=== PATIENT | female | born 1980 | race Caucasian/White ===

== ENCOUNTER 2018-07-14 19:47 | Inpatient (IN) ==
[2018-07-14 21:05] LABS: Basophils # 0.1 K/mcL (0.0-0.2); Basophils % 0.6 %; Eosinophils # 0.3 K/mcL (0.0-0.6); Eosinophils % 1.8 %; Hematocrit 47.8 % (35.3-44.9); Hemoglobin 16.4 g/dL (11.5-15.4); Immature Granulocytes % 0.4 % (0-4); Lymphocytes # 2.7 K/mcL (0.6-4.6); Lymphocytes % 19.6 %; Mean Corpuscular HGB Conc 34.3 g/dL (31.6-35.5); Mean Corpuscular Volume 90.4 fL (83.0-100.0); Mean Platelet Volume 10.5 fL (9.4-12.4); Monocytes # 1.1 K/mcL (0.0-1.3); Monocytes % 7.9 %; Neutrophils # 9.8 K/mcL (1.6-8.9); Platelet Count 303 K/mcL (140-400); Red Blood Count 5.29 M/mcL (3.82-4.97); Red Cell Distribution Width 13.2 % (11.5-14.5); Segmented Neutrophils % 69.7 %
--- NOTE | 2018-07-14 21:10 | Emergency Department Note ---
Disposition Clinical Impression: Suicidal ideation Depression Qualifiers: Depression Type: major depressive disorder Major depression recurrence: recurrent Active/Remission status: currently active Major depression episode severity: severe Psychotic features: without psychotic features Qualified Code(s ): F33.2 - Major depressive disorder, recurrent severe without psychotic features Disposition: Admitted As Inpatient Condition: Good Referrals: NONE,PCP [Primary Care Provider] - Forms: ED Satisfaction Letter Time of Disposition: 00:49 Psych HPI - General Chief Complaint: ED Psychiatric Symptoms Stated Complaint: SI Time Seen by Provider: 07/14/18 20:55 Source: patient Mode of arrival: ambulatory Nursing Notes Reviewed: Yes Vital Signs Reviewed: Yes - History of Present Illness HPI Narrative: This is a 37-year-old female who reports a long history of depression, not on any current medications, who states that she feels like she cannot do anything right and is severely tempted to cut herself. Instead, she punched a wall tonight. She has pain in the right fourth metacarpal and severe bruising as a result. She states she tried to get into psychiatry was told many months before she could do so. - Related Data Allergies Allergy/AdvReac Type Severity Reaction Status Date / Time ibuprofen AdvReac Vomiting Verified 07/22/17 08:11 All systems ED: reviewed and negative except as stated. Psychiatric: Reports: depression, suicidal thoughts Past Medical History - Past Medical History Medical history: Reports: GERD, hypertension, migraine Psychiatric history: Reports: no psych history - Social History Smoking Status: Current every day smoker Smokeless Tobacco Status: No Alcohol use: Reports: none Drug use: Reports: marijuana Physical Exam - General Limitations: no limitations General appearance: alert, in no apparent distress - Head Head exam: atraumatic, normocephalic, normal inspection - Eye Eye exam: Present: normal appearance, PERRL, EOMI - Neck Neck exam: Present: normal inspection, full ROM, trachea midline - Chest Chest inspection: Present: normal inspection, symmetric chest wall rise - Respiratory Respiratory exam: Present: normal lung sounds bilaterally - Cardiovascular Cardiovascular exam: Present: regular rate, normal rhythm, normal heart sounds - Abdominal Exam Abdominal exam: Present: soft, Non-Tender. Absent: tenderness, distention, guarding, rebound, rigidity - Extremities Exam Extremities exam: Present: normal inspection, full ROM. Absent: tenderness, pedal edema - Neurological Exam Neurological exam: Present: alert, oriented X3, CN II-XII intact. Absent: motor sensory deficit - Psychiatric Psychiatric exam: Present: depressed, suicidal ideation, other (She reports no definite SI or HI, but states she wants to cut herself.) - Skin Skin exam: Present: warm, dry, normal color Course Vital Signs Temperature 97.9 F 07/14/18 19:56 Pulse Rate 106 07/14/18 19:56 Respiratory Rate 20 07/14/18 19:56 Blood Pressure 186/113 07/14/18 19:56 O2 Sat by Pulse Oximetry 98 07/14/18 19:56 Temperature 97.9 F 07/14/18 19:56 Pulse Rate 106 07/14/18 19:56 Respiratory Rate 20 07/14/18 19:56 Blood Pressure 186/113 07/14/18 19:56 O2 Sat by Pulse Oximetry 98 07/14/18 19:56 Oxygen Delivery Oxygen Delivery Room Air Psych - MDM Narrative Medical decision making narrative: This is a 37-year-old female with depression and suicidal ideations with a plan of cutting herself. She was seen by psychiatry here in the emergency department with a recommendation of admission. - Lab Data Lab results narrative: CBC shows hemoconcentration with a leukocytosis of 14, H&H is 16.4 and 47.8 BMP was unremarkable UA was unremarkable Drug screen was positive for THC Result diagrams: 07/14/18 20:47 07/14/18 20:47 Lab Results 07/14/18 07/14/18 07/14/18 Range/Units 20:45 20:45 20:47 WBC 14.0 H (4.3-11.1) K/mcL RBC 5.29 H (3.82-4.97) M/mcL Hgb 16.4 H (11.5-15.4) g/dL Hct 47.8 H (35.3-44.9) % MCV 90.4 (83.0-100.0) fL MCH 31.0 (28.0-33.3) pg MCHC 34.3 (31.6-35.5) g/dL RDW 13.2 (11.5-14.5) % Plt Count 303 (140-400) K/mcL MPV 10.5 (9.4-12.4) fL Immature Gran % 0.4 (0-4) % Seg Neutrophils % 69.7 % Lymphocytes % 19.6 % Monocytes % 7.9 % Eosinophils % 1.8 % Basophils % 0.6 % Neutrophils # 9.8 H (1.6-8.9) K/mcL Lymphocytes # 2.7 (0.6-4.6) K/mcL Monocytes # 1.1 (0.0-1.3) K/mcL Eosinophils # 0.3 (0.0-0.6) K/mcL Basophils # 0.1 (0.0-0.2) K/mcL Sodium (136-145) mEq/L Potassium (3.5-5.1) mEq/L Chloride (98-107) mEq/L Carbon Dioxide (23-29) mEq/L BUN (6-20) mg/dL Creatinine (0.60-1.20) mg/dL Est GFR ( Amer) (> 60) Est GFR (Non-Af Amer) (> 60) BUN/Creatinine Ratio (6-26) Glucose (70-105) mg/dL Calculated Osmolality (280-300) Calcium (8.6-10.3) mg/dL Urine Color Yellow (Yellow) Urine Clarity Clear (Clear) Urine pH 6.0 (5.0-8.0) pH Units Ur Specific [place] 1.015 (1.010-1.025) Urine Protein Negative (Neg-Trace) mg/dL Urine Glucose (UA) Normal (Normal) mg/dL Urine Ketones Negative (Negative) mg/dL Urine Blood Trace-lysed H (Negative) Urine Nitrite Negative (Negative) Urine Bilirubin Negative (Negative) Urine Urobilinogen Normal (Normal) mg/dL Ur Leukocyte Esterase Negative (Negative) Urine Microscopic RBC 0-3 (0-3) per hpf Urine Microscopic WBC 0-3 (0-3) per hpf Ur Squamous Epith Cells Many H (None-Few) per lpf Calcium Phosphate Cryst Present Urine Bacteria None Seen (None-Few) per hpf Salicylates (15.0-30.0) mg/dL Urine Opiates Screen Negative (Xgdhys=698) ng/mL Acetaminophen (10-20) mcg/mL Ur Barbiturates Screen Negative (Ewqeuo=773) ng/mL Ur Phencyclidine Scrn Negative (Cutoff=25) ng/mL Ur Amphetamines Screen Negative (Ckyfic=6628) ng/mL U Benzodiazepines Scrn Negative (Rdjhqh=754) ng/mL Urine Cocaine Screen Negative (Cutoff= 300) ng/mL U Marijuana (THC) Screen Positive H (Cutoff = 50) ng/mL Ur Drug Screen Interp See Below Ethyl Alcohol (Less than 10) mg/dL 07/14/18 Range/Units 20:47 WBC (4.3-11.1) K/mcL RBC (3.82-4.97) M/mcL Hgb (11.5-15.4) g/dL Hct (35.3-44.9) % MCV (83.0-100.0) fL MCH (28.0-33.3) pg MCHC (31.6-35.5) g/dL RDW (11.5-14.5) % Plt Count (140-400) K/mcL MPV (9.4-12.4) fL Immature Gran % (0-4) % Seg Neutrophils % % Lymphocytes % % Monocytes % % Eosinophils % % Basophils % % Neutrophils # (1.6-8.9) K/mcL Lymphocytes # (0.6-4.6) K/mcL Monocytes # (0.0-1.3) K/mcL Eosinophils # (0.0-0.6) K/mcL Basophils # (0.0-0.2) K/mcL Sodium 137 (136-145) mEq/L Potassium 3.7 (3.5-5.1) mEq/L Chloride 106 (98-107) mEq/L Carbon Dioxide 23 (23-29) mEq/L BUN 11 (6-20) mg/dL Creatinine 0.74 (0.60-1.20) mg/dL Est GFR ( Amer) > 60 (> 60) Est GFR (Non-Af Amer) > 60 (> 60) BUN/Creatinine Ratio 15 (6-26) Glucose 104 (70-105) mg/dL Calculated Osmolality 284 (280-300) Calcium 9.4 (8.6-10.3) mg/dL Urine Color (Yellow) Urine Clarity (Clear) Urine pH (5.0-8.0) pH Units Ur Specific [place] (1.010-1.025) Urine Protein (Neg-Trace) mg/dL Urine Glucose (UA) (Normal) mg/dL Urine Ketones (Negative) mg/dL Urine Blood (Negative) Urine Nitrite (Negative) Urine Bilirubin (Negative) Urine Urobilinogen (Normal) mg/dL Ur Leukocyte Esterase (Negative) Urine Microscopic RBC (0-3) per hpf Urine Microscopic WBC (0-3) per hpf Ur Squamous Epith Cells (None-Few) per lpf Calcium Phosphate Cryst Urine Bacteria (None-Few) per hpf Salicylates 2.6 L (15.0-30.0) mg/dL Urine Opiates Screen (Addwrp=327) ng/mL Acetaminophen < 10 L (10-20) mcg/mL Ur Barbiturates Screen (Pohgkc=591) ng/mL Ur Phencyclidine Scrn (Cutoff=25) ng/mL Ur Amphetamines Screen (Zklnhl=9025) ng/mL U Benzodiazepines Scrn (Nxsujk=211) ng/mL Urine Cocaine Screen (Cutoff= 300) ng/mL U Marijuana (THC) Screen (Cutoff = 50) ng/mL Ur Drug Screen Interp Ethyl Alcohol < 10 (Less than 10) mg/dL Psychiatric Medical Clearance - Medical Clearance Checklist Medical History: No Social History Section defined Current Vitals: Last Vital Signs Temp 97.9 F 07/14/18 19:56 Pulse 106 07/14/18 19:56 Resp 20 07/14/18 19:56 BP 186/113 07/14/18 19:56 Pulse Ox 98 07/14/18 19:56 Psychiatric Lab Panel: Drug Levels and Toxicity 07/14/18 07/14/18 20:45 20:47 Urine Opiates Screen Negative Acetaminophen < 10 L Ur Barbiturates Screen Negative Ur Phencyclidine Scrn Negative Ur Amphetamines Screen Negative U Benzodiazepines Scrn Negative Urine Cocaine Screen Negative U Marijuana (THC) Screen Positive H Ethyl Alcohol < 10 Abnormal Labs: Abnormal lab results WBC 14.0 K/mcL (4.3-11.1) H 07/14/18 20:47 RBC 5.29 M/mcL (3.82-4.97) H 07/14/18 20:47 Hgb 16.4 g/dL (11.5-15.4) H 07/14/18 20:47 Hct 47.8 % (35.3-44.9) H 07/14/18 20:47 Neutrophils # 9.8 K/mcL (1.6-8.9) H 07/14/18 20:47 Urine Blood Trace-lysed (Negative) H 08/13/18 20:45 Ur Squamous Epith Cells Many per lpf (None-Few) H 07/14/18 20:45 Salicylates 2.6 mg/dL (15.0-30.0) L 07/14/18 20:47 Acetaminophen < 10 mcg/mL (10-20) L 07/14/18 20:47 U Marijuana (THC) Screen Positive ng/mL (Cutoff = 50) H 07/14/18 20:45 Statement of Medical Clearance: I have evaluated the patient, reviewed diagnostic information, and certify that the patient's medical condition is sufficiently stable that transfer to the psychiatric unit does not pose a significant risk of deterioration.
[2018-07-14 21:11] LABS: Bilirubin,Urine Negative (Negative); Blood,Urine Trace-lysed (Negative); Clarity,Urine Clear (Clear); Color,Urine Yellow (Yellow); Glucose,Urine (UA) Normal (Normal); Ketones,Urine Negative (Negative); Leukocyte Esterase,Urine Negative (Negative); Nitrite,Urine Negative (Negative); Protein,Urine Negative (Neg-Trace); Specific Gravity,Urine 1.015 (1.010-1.025); Urobilinogen,Urine Normal (Normal)
[2018-07-14 21:20] LABS: Acetaminophen < 10 mcg/mL (10-20); BUN/Creatinine Ratio 15 (6-26); Blood Urea Nitrogen 11 mg/dL (6-20); Calcium 9.4 mg/dL (8.6-10.3); Carbon Dioxide 23 mEq/L (23-29); Chloride 106 mEq/L (98-107); Ethanol < 10 mg/dL (Less than 10); Glucose 104 mg/dL (70-105); Osmolality,Calculated 284 (280-300); Potassium 3.7 mEq/L (3.5-5.1); Salicylate 2.6 mg/dL (15.0-30.0); Sodium 137 mEq/L (136-145); eGFR For Non-African Americans > 60 (> 60)
[2018-07-14 21:21] LABS: Amphetamine Screen,Urine Negative ng/mL (Cutoff=1000); Barbiturate Screen,Urine Negative ng/mL (Cutoff=200); Benzodiazepines Screen,Urine Negative ng/mL (Cutoff=200); Cannabinoid Screen,Urine Positive ng/mL (Cutoff = 50); Cocaine Screen,Urine Negative ng/mL (Cutoff= 300); Opiate Screen,Urine Negative ng/mL (Cutoff=300); Phencyclidine Screen,Urine Negative ng/mL (Cutoff=25); RBC,Urine 0-3 per hpf (0-3); Squamous Epithelial Cell,Urine Many per lpf (None-Few)
[2018-07-14 21:22] LABS: WBC,Urine 0-3 per hpf (0-3)
[2018-07-14 21:23] LABS: Bacteria,Urine None Seen per hpf (None-Few); Calcium Phosphate Crystals,Ur Present
[2018-07-15] MEDS ORDERED: *HR* LORazepam 1 MG TABLET PO PRN (00:52)
[2018-07-15] MEDS ORDERED: MOM Conc 10 ML UD.LIQ PO PRN (00:52)
[2018-07-15] MEDS ORDERED: Mag Hydrox/Al Hydrox/Simeth 30 ML UDC PO PRN (00:52)
[2018-07-15] MEDS ORDERED: traZODone 50 MG TABLET PO PRN (00:52)
[2018-07-15] MEDS ORDERED: *HR* LORazepam 2 MG/ML VIAL IM PRN (00:52)
[2018-07-15] MEDS ORDERED: Haloperidol Lactate 5 MG/ML VIAL IM PRN (00:52)
[2018-07-15] MEDS: Acetaminophen 325 MG TABLET PO PRN (01:41)
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
[2018-07-15] MEDS: Nicotine 21 MG PATCH.TD24 TD SCH (11:24)
[2018-07-15] MEDS: Venlafaxine XR (24 HR) 75 MG CAP.ER.24H PO SCH (11:24)
[2018-07-15] MEDS: hydrOXYzine pamoate 25 MG CAPSULE PO PRN (20:12)
[2018-07-16] MEDS: Venlafaxine XR (24 HR) 75 MG CAP.ER.24H PO SCH (08:33)
[2018-07-16] MEDS: Nicotine 21 MG PATCH.TD24 TD SCH (08:33)
--- NOTE | 2018-07-16 14:06 | Psychiatry Progress Note ---
Date of Encounter: 07/16/18 Time of Encounter: 14:04 Subjective Interval history: Patient seen for follow-up. Case discussed with treatment team. Staff report patient is cooperative, medication compliant, participate in groups and activities. She is tolerating the new medication and denies any side effects. She reports mid insomnia and partial response to trazodone. She responded well to Seroquel. She is motivated to do her outpatient follow-up and counseling and to continue taking medication. She is future oriented and hopeful. Denied any hopelessness or suicidal ideation. Review of Systems Psychiatric: Reports: depression, anxiety, abnormal sleep pattern, suicidal ideation, hopelessness, irritability Results - Vital Signs Vital Signs: Temp Pulse Resp BP Pulse Ox 98.6 F 96 18 143/100 98 07/16/18 09:00 07/16/18 09:00 07/16/18 09:00 07/16/18 09:00 07/14/18 19:56 Assessment and Plan (1) Depression Current visit: Yes Status: Acute Plan: Continue hospitalization, Close observation, Suicide Precautions per unit protocol, Encourage participation in unit milieu, Group Therapy, Monitor sleep, Monitor appetite Risks, benefits, side effects, alternatives discussed w/pt: Yes Patient agreeable to treatment: Yes Qualifiers: Depression Type: major depressive disorder Major depression recurrence: recurrent Active/Remission status: currently active Major depression episode severity: severe Psychotic features: without psychotic features Qualified Code(s): F33.2 - Major depressive disorder, recurrent severe without psychotic features Consult Discharge Plan - Plan Referrals: NONE,PCP [Primary Care Provider] - Psychiatry Exam - Constitutional Vitals: Temp Pulse Resp BP Pulse Ox 98.6 F 96 18 143/100 98 07/16/18 09:00 07/16/18 09:00 07/16/18 09:00 07/16/18 09:00 07/14/18 19:56 General appearance: age & developmentally appropriate, well-groomed, well- nourished, obese - Musculoskeletal Gait: normal Station: relaxed Strength & Tone: normal for patient - Psychiatric Patient Orientation: Yes Person, Yes Time, Yes Place Level of alertness: Alert Behavior: calm, cooperative Psychomotor activity: Normal Eye Contact: Maintains Eye Contact Mood Description: Euthymic/stable, Anxious Affect description: congruent with mood, full range Speech Volume: Normal Speech pattern: normal rate, normal rhythm, normal tone, fluent, spontaneous Language & Vocabulary: consistent with education Thought Process: Linear, Goal Oriented Thought Content: No Suicidal ideation, No Homicidal ideation, No Overt delusions Perceptual Disturbances: No Auditory hallucinations, No Visual hallucinations Attention Span Ability: Capable of Focused Attention Memory Description: Grossly Intact Patient Reliability: Reliable Historian Fund of knowledge: Yes abstraction ability, Yes aware of current events Intelligence Estimate: Average Judgment: Limited Insight: Partial
[2018-07-16] MEDS: Acetaminophen 325 MG TABLET PO PRN (20:16)
[2018-07-16] MEDS: hydrOXYzine pamoate 25 MG CAPSULE PO PRN (20:18)
[2018-07-17] MEDS: Nicotine 21 MG PATCH.TD24 TD SCH (08:27)
[2018-07-17] MEDS: Venlafaxine XR (24 HR) 75 MG CAP.ER.24H PO SCH (08:27)
[2018-07-17 09:31] VITALS: BP 131/92
--- NOTE | 2018-07-17 10:47 | Discharge Summary ---
Date of Encounter: 07/17/18 Time of Encounter: 10:43 Diagnosis - Discharge Diagnosis (1) Depression Status: Acute Qualifiers: Depression Type: major depressive disorder Major depression recurrence: recurrent Active/Remission status: currently active Major depression episode severity: severe Psychotic features: without psychotic features Qualified Code(s): F33.2 - Major depressive disorder, recurrent severe without psychotic features Medications - Discharge Medications Prescriptions: Quetiapine Fumarate [Seroquel] 50 mg PO HS PRN #30 tablet PRN Reason: Insomnia Venlafaxine XR (24 HR) [Effexor XR] 75 mg PO DAILY #30 cap.er.24h Albuterol Sulfate [Ventolin Hfa] 2 puff IH Q4-6H PRN 07/15/18 [History] Quetiapine Fumarate [Seroquel] 50 mg PO HS PRN #30 tablet 07/17/18 [Rx] Venlafaxine XR (24 HR) [Effexor XR] 75 mg PO DAILY #30 cap.er.24h 07/17/18 [Rx] 3 Allergy/AdvReac Type Severity Reaction Status Date / Time ibuprofen AdvReac Vomiting Verified 07/15/18 09:32 Provider Date of admission: 07/15/18 00:50 Primary care physician: PCP NONE Discharging clinician: Tavo Frazier Psychiatry Exam - Constitutional Vitals: Temp Pulse Resp BP Pulse Ox 98.0 F 83 16 131/92 98 07/17/18 09:00 07/17/18 09:00 07/17/18 09:00 07/17/18 09:00 07/14/18 19:56 General appearance: age & developmentally appropriate, well-groomed, well- nourished, obese - Musculoskeletal Gait: normal Station: relaxed Strength & Tone: normal for patient - Psychiatric Patient Orientation: Yes Person, Yes Time, Yes Place Level of alertness: Alert Behavior: calm, cooperative Psychomotor activity: Normal Eye Contact: Maintains Eye Contact Mood Description: Euthymic/stable Affect description: congruent with mood, full range Speech Volume: Normal Speech pattern: normal rate, normal rhythm, normal tone, fluent, spontaneous Language & Vocabulary: consistent with education Thought Process: Linear, Goal Oriented Thought Content: No Suicidal ideation, No Homicidal ideation, No Overt delusions Perceptual Disturbances: No Auditory hallucinations, No Visual hallucinations Attention Span Ability: Capable of Focused Attention Memory Description: Grossly Intact Patient Reliability: Reliable Historian Fund of knowledge: Yes abstraction ability, Yes aware of current events Intelligence Estimate: Average Judgment: Limited Insight: Partial Hospital Course Hospital course: Ms. Amaya is a 37 year old female admitted for depression and suicidal ideation. For details of admission please see H&P On the units patient was started on Effexor SR and Seroquel for sleep patient tolerated medication well without any side effects, she participated in activities and groups, she was medication compliant. She reported improved sleep and appetite and energy level. She denied any suicidal ideation or self- harm or hopelessness. On discharge patient was medically stable, nonsuicidal, tolerating medication without any side effects and future oriented. Social work could not completed her discharge plans and follow-up appointments. She is discharged in stable condition - Time Spent with Patient Total time spent providing and/or coordinating discharge services: Greater than 30 minutes Assessment and Plan - Patient/Caregiver Discharge Instructions Activity: resume usual activities as tolerated Diet: regular diet - Follow up Plan Follow up with: [facility] [Outside] - 07/31/18 10:00 am (The above appointment is with Mariluz Molina, counselor at [facility]. Your first appointment will be very thorough and the total appointment time will take between two and three hours. You will be completing paperwork, meeting with a counselor and a nurse, and developing a treatment plan. You will receive follow- up appointments for on-going services , which could include community support, mental health counseling and psychiatric medication management. Please bring the following with you to your first visit to the clinic: 1) proof of income (two consecutive pay stubs, social security award letter, bank statement, statement letter from [employer], child support statement, IRS 1040 or W2 form, or a statement from the person who financially supports you stating they help provide for your basic needs), 2 ) proof of residency (drivers license, a piece of mail showing your address, a statement from person you live with verifying you live at their address), 3) your social security card, 4) photo ID, and 5) your insurance card.) Antoinette Miranda [Advanced Practice Nurse] - 08/18/18 11:00 am (The above appointment is with Antoinette Ruben, [employer], at Primary [facility] within [facility]. This appointment is to establish you with a primary care provider. Your needs for medication will be assessed and treated as indicated as well. Please arrive 15 minutes early to complete paperwork. Please bring your insurance card, photo ID and list of current medications to your first appointment. The above appointment(s) reflects first availability. You may contact the office regularly to check for cancellations that may allow you to be seen sooner.) Functional capacity at discharge: independent ambulation Overall status at discharge: Stable Disposition: Home, Self-Care Quality - Multiple Antipsychotics Patient discharged on 2 or more antipsychotic medications: No Procedures - Procedures Procedures: Medication Management, Crisis Stabilization, Supportive Therapy, Group Therapy, Psychoeducational Therapy
== END 2018-07-17 12:10 | disposition home or self-care (01) | DRG 751 ==
LOC: EMEROOARM 19:47 → 1ANU 07-15 00:50
PROVIDERS: ADMIT Psychiatry & Neurology Psychiatry; ATTEND Psychiatry & Neurology Psychiatry

== ENCOUNTER 2019-07-19 22:28 | Observation (INO) ==
[2019-07-19] MEDS ORDERED: 0.9 % Sodium Chloride 1,000 ML IVC ONE (22:41)
[2019-07-19] MEDS ORDERED: Azithromycin 250 MG TABLET PO ONE (22:54)
[2019-07-19] MEDS ORDERED: cefTRIAXone 1,000 MG in Water for inj. (sterile) 10 ML IVP ONE (22:57)
[2019-07-19] MEDS ORDERED: methylPREDNISolone 125 MG/2 ML VIAL IVP ONE (22:58)
[2019-07-19 23:09] LABS: Basophils # 0.1 K/mcL (0.0-0.2); Basophils % 0.8 %; Eosinophils # 0.1 K/mcL (0.0-0.6); Eosinophils % 1.1 %; Hematocrit 41.2 % (35.3-44.9); Hemoglobin 13.8 g/dL (11.5-15.4); Immature Granulocytes % 0.5 % (0-4); Lymphocytes # 3.9 K/mcL (0.6-4.6); Lymphocytes % 34.7 %; Mean Corpuscular HGB Conc 33.5 g/dL (31.6-35.5); Mean Corpuscular Hemoglobin 29.9 pg (28.0-33.3); Mean Corpuscular Volume 89.2 fL (83.0-100.0); Mean Platelet Volume 9.3 fL (9.4-12.4); Monocytes # 0.9 K/mcL (0.0-1.3); Monocytes % 7.9 %; Neutrophils # 6.3 K/mcL (1.6-8.9); Platelet Count 318 K/mcL (140-400); Red Blood Count 4.62 M/mcL (3.82-4.97); Red Cell Distribution Width 13.2 % (11.5-14.5); White Blood Count 11.4 K/mcL (4.3-11.1)
[2019-07-19 23:16] LABS: Prothrombin Time 10.8 Seconds (9.4-12.1)
[2019-07-19 23:19] LABS: Activated Partial Thrombo Time 34.7 Seconds (26.0-36.0)
--- NOTE | 2019-07-19 23:20 | Emergency Department Note ---
Disposition Clinical Impression: Pneumonia, Community acquired pneumonia Disposition: Admitted As Inpatient Condition: Good Referrals: NONE,PCP [Primary Care Provider] - Forms: ED Satisfaction Letter Time of Disposition: 00:25 SOB HPI - General Chief Complaint: ED Shortness of Breath/Dyspnea Stated Complaint: cough, congestion Time Seen by Provider: 07/19/19 22:37 Source: patient Limitations: no limitations Nursing Notes Reviewed: Yes Vital Signs Reviewed: Yes - History of Present Illness 38-year-old female presents today with 2 weeks of worsening dyspnea. She went t o the urgent care 2 weeks ago and was treated with Levaquin. She was advised to obtain a chest x-ray but she did not complete this. She completed antibiotics but shortness of breath has worsened. She admits to accompanied worsening cough with yellow sputum and blood streaking. Reports subjective fevers, chills, nausea without vomiting. She is an active smoker and live a sedentary lifestyle. No history of recent travel or cancer history. Denies any CP, diaphoresis, abdominal pain, worsening swelling, hemoptysis, weight loss. Pt Subjective Complaint: shortness of breath Onset (ago): week(s) (2) Context: recent illness - Related Data Home Medications Medication Instructions Recorded Confirmed Albuterol Sulfate [Ventolin Hfa] 2 puff IH Q4-6H PRN 07/15/18 02/27/19 Buspirone HCl [Buspar] 10 mg PO DAILY 02/27/19 02/27/19 Cetirizine HCl [Zyrtec] 10 mg PO DAILY 02/27/19 02/27/19 Cholecalciferol (Vitamin D3) 1,000 unit PO DAILY 02/27/19 02/27/19 [Vitamin D] Fluticasone Propionate Nasal 50 mcg NS DAILY 02/27/19 02/27/19 [Flonase] Fluticasone/Vilanterol [Breo 1 each IH DAILY 02/27/19 02/27/19 Ellipta 100-25 Mcg INH] Gabapentin [Neurontin] 600 mg PO DAILY 02/27/19 02/27/19 Ipratropium/Albuterol Sulfate 3 ml IH Q4H PRN 02/27/19 02/27/19 [Iprat-Albut 0.5-3(2.5) mg/3 ml] Loratadine [Claritin] 10 mg PO DAILY 02/27/19 02/27/19 Montelukast [Singulair] 10 mg PO DAILY 02/27/19 02/27/19 Nicotine Patch [Nicoderm] 7 mg TD DAILY 02/27/19 02/27/19 Omeprazole [PriLOSEC] 40 mg PO DAILY 02/27/19 02/27/19 Polyethylene Glycol 3350 [MiraLAX] 17 gm PO DAILY PRN 02/27/19 02/27/19 SUMAtriptan succinate [Imitrex] 50 mg PO Q2H 02/27/19 02/27/19 Topiramate [Topamax] 50 mg PO DAILY 02/27/19 02/27/19 Tramadol HCl [Ultram] 50 mg PO TID PRN 02/27/19 02/27/19 Trazodone HCl 50 mg PO HS PRN 02/27/19 02/27/19 Venlafaxine XR (24 HR) [Effexor XR] 150 mg PO DAILY 02/27/19 02/27/19 hydrOXYzine HCl [Hydroxyzine HCl] 25 mg PO Q8H 02/27/19 02/27/19 lamoTRIgine [Lamictal] 200 mg PO HS 02/27/19 02/27/19 raNITIdine HCl [Zantac] 150 mg PO DAILY 02/27/19 02/27/19 Previous Rx's Medication Instructions Recorded Quetiapine Fumarate [Seroquel] 50 mg PO HS PRN #30 tablet 07/17/18 Allergies Allergy/AdvReac Type Severity Reaction Status Date / Time acetaminophen AdvReac CONTRAINDICATED: Verified 07/19/19 22:35 HEP C ibuprofen AdvReac Vomiting Verified 07/19/19 22:35 Constitutional: Reports: fever, chills, weakness Eyes: Denies: eye pain Cardiovascular: Denies: chest pain, palpitations Respiratory: Reports: cough, dyspnea, wheezes, sputum production. Denies: hemop tysis, stridor Gastrointestinal: Reports: nausea. Denies: abdominal pain, vomiting, diarrhea Genitourinary: Denies: urgency, dysuria Past Medical History - Past Medical History Medical history: Reports: arthritis, asthma, cancer, GERD, glaucoma, hypertension, migraine, osteoporosis, other Surgical history: Reports: other Psychiatric history: Reports: anxiety, depression - Social History Smoking Status: Current every day smoker Smokeless Tobacco Status: No Alcohol use: Reports: none Drug use: Reports: marijuana Physical Exam - General Limitations: no limitations General appearance: alert, in no apparent distress - Head Head exam: atraumatic - Eye Eye exam: Present: normal appearance - ENT ENT exam: normal exam - Chest Chest inspection: Present: normal inspection, symmetric chest wall rise - Respiratory Respiratory exam: Present: respiratory distress, wheezes, other (BL diffuse wheezing and crackles.) - Cardiovascular Cardiovascular exam: Present: regular rate, normal rhythm, +S1, +S2 - Abdominal Exam Abdominal exam: Present: soft, Non-Tender, tenderness Course Course Narrative: 38F presents with 2 weeks history of worsening SOB with yellow sputum, previously failed Levaquin therapy. CXR with left basilar airspace disease, likely pneumonia vs COPD exacerbation. Patient received dose of Rocephin, Azithromycin, steroid, breathing therapy in the ED, but continues to be symptomatic. Patient has been tachycardic (117) since admission. RR 20. SPO2 94. Blood work significant for mild leukocytosis. D-Dimer is WNL. Patient to be admitted for left basilar pneumonia and COPD exacerbation. Admitting hospitalist has accepted. - Consultations Consultation #1: Admitting hospitalist Time: 00:23 Vital Signs Temperature 98.4 F 07/19/19 22:31 Pulse Rate 117 07/19/19 22:31 Respiratory Rate 20 07/19/19 22:31 Blood Pressure 125/89 07/19/19 22:31 O2 Sat by Pulse Oximetry 94 07/19/19 22:31 Temperature 98.4 F 07/19/19 22:31 Pulse Rate 100 07/19/19 23:28 Respiratory Rate 18 07/19/19 23:41 Blood Pressure 119/88 07/19/19 23:28 O2 Sat by Pulse Oximetry 93 07/19/19 23:41 Oxygen Delivery Oxygen Delivery Room Air Shortness of Breath/Dyspnea - Medical Records Medical records reviewed: Yes I reviewed the patient's medical records. - Lab Data Lab results reviewed: Yes I reviewed the patient's lab results. Result diagrams: 07/19/19 22:56 07/19/19 22:56 Lab Results 07/19/19 07/19/19 07/19/19 Range/Units 22:56 22:56 22:56 WBC 11.4 H (4.3-11.1) K/mcL RBC 4.62 (3.82-4.97) M/mcL Hgb 13.8 (11.5-15.4) g/dL Hct 41.2 (35.3-44.9) % MCV 89.2 (83.0-100.0) fL MCH 29.9 (28.0-33.3) pg MCHC 33.5 (31.6-35.5) g/dL RDW 13.2 (11.5-14.5) % Plt Count 318 (140-400) K/mcL MPV 9.3 L (9.4-12.4) fL Immature Gran % 0.5 (0-4) % Seg Neutrophils % 55.0 % Lymphocytes % 34.7 % Monocytes % 7.9 % Eosinophils % 1.1 % Basophils % 0.8 % Neutrophils # 6.3 (1.6-8.9) K/mcL Lymphocytes # 3.9 (0.6-4.6) K/mcL Monocytes # 0.9 (0.0-1.3) K/mcL Eosinophils # 0.1 (0.0-0.6) K/mcL Basophils # 0.1 (0.0-0.2) K/mcL PT 10.8 (9.4-12.1) Seconds INR 1.0 APTT 34.7 (26.0-36.0) Seconds D-Dimer 310 (0-500) ng/mLFEU Sodium 138 (136-145) mEq/L Potassium 3.5 (3.5-5.1) mEq/L Chloride 106 (98-107) mEq/L Carbon Dioxide 24 (23-29) mEq/L BUN 10 (6-20) mg/dL Creatinine 0.71 (0.60-1.20) mg/dL Est GFR ( Amer) > 60 (> 60) Est GFR (Non-Af Amer) > 60 (> 60) BUN/Creatinine Ratio 14 (6-26) Glucose 81 (70-105) mg/dL Calculated Osmolality 284 (280-300) Lactic Acid (0.5-2.2) mmol/L Calcium 8.9 (8.6-10.3) mg/dL Phosphorus 3.2 (2.7-4.5) mg/dL Magnesium 1.9 (1.6-2.6) mg/dL Total Bilirubin 0.3 (0.3-1.0) mg/dL Direct Bilirubin 0.1 (0.0-0.2) mg/dL Indirect Bilirubin 0.2 (0.0-1.2) mg/dL AST 16 (13-39) Units/L ALT 15 (7-52) Units/L Alkaline Phosphatase 93 (34-104) Units/L Troponin I < 0.03 (< 0.04) ng/mL Serum Total Protein 6.3 L (6.4-8.9) g/dL Albumin 3.6 (3.5-5.7) g/dL Globulin 2.7 (2.4-3.5) g/dL Albumin/Globulin Ratio 1.3 (1.1-2.2) Urine Color (Yellow) Urine Clarity (Clear) Urine pH (5.0-8.0) pH Units Ur Specific Fenton (1.010-1.025) Urine Protein (Neg-Trace) mg/dL Urine Glucose (UA) (Normal) mg/dL Urine Ketones (Negative) mg/dL Urine Blood (Negative) Urine Nitrite (Negative) Urine Bilirubin (Negative) Urine Urobilinogen (Normal) mg/dL Ur Leukocyte Esterase (Negative) Urine Microscopic RBC (0-3) per hpf Urine Microscopic WBC (0-3) per hpf Ur Squamous Epith Cells (None-Few) per lpf Calcium Oxalate Crystal Urine Bacteria (None-Few) per hpf Hyaline Casts (None-Few) per lpf Ur Culture Indicated? (NO) 07/19/19 07/19/19 Range/Units 22:56 23:28 WBC (4.3-11.1) K/mcL RBC (3.82-4.97) M/mcL Hgb (11.5-15.4) g/dL Hct (35.3-44.9) % MCV (83.0-100.0) fL MCH (28.0-33.3) pg MCHC (31.6-35.5) g/dL RDW (11.5-14.5) % Plt Count (140-400) K/mcL MPV (9.4-12.4) fL Immature Gran % (0-4) % Seg Neutrophils % % Lymphocytes % % Monocytes % % Eosinophils % % Basophils % % Neutrophils # (1.6-8.9) K/mcL Lymphocytes # (0.6-4.6) K/mcL Monocytes # (0.0-1.3) K/mcL Eosinophils # (0.0-0.6) K/mcL Basophils # (0.0-0.2) K/mcL PT (9.4-12.1) Seconds INR APTT (26.0-36.0) Seconds D-Dimer (0-500) ng/mLFEU Sodium (136-145) mEq/L Potassium (3.5-5.1) mEq/L Chloride (98-107) mEq/L Carbon Dioxide (23-29) mEq/L BUN (6-20) mg/dL Creatinine (0.60-1.20) mg/dL Est GFR ( Amer) (> 60) Est GFR (Non-Af Amer) (> 60) BUN/Creatinine Ratio (6-26) Glucose (70-105) mg/dL Calculated Osmolality (280-300) Lactic Acid 1.0 (0.5-2.2) mmol/L Calcium (8.6-10.3) mg/dL Phosphorus (2.7-4.5) mg/dL Magnesium (1.6-2.6) mg/dL Total Bilirubin (0.3-1.0) mg/dL Direct Bilirubin (0.0-0.2) mg/dL Indirect Bilirubin (0.0-1.2) mg/dL AST (13-39) Units/L ALT (7-52) Units/L Alkaline Phosphatase (34-104) Units/L Troponin I (< 0.04) ng/mL Serum Total Protein (6.4-8.9) g/dL Albumin (3.5-5.7) g/dL Globulin (2.4-3.5) g/dL Albumin/Globulin Ratio (1.1-2.2) Urine Color Yellow (Yellow) Urine Clarity Cloudy A (Clear) Urine pH 6.0 (5.0-8.0) pH Units Ur Specific Fenton 1.027 H (1.010-1.025) Urine Protein Negative (Neg-Trace) mg/dL Urine Glucose (UA) Normal (Normal) mg/dL Urine Ketones Negative (Negative) mg/dL Urine Blood Negative (Negative) Urine Nitrite Negative (Negative) Urine Bilirubin Negative (Negative) Urine Urobilinogen Normal (Normal) mg/dL Ur Leukocyte Esterase Negative (Negative) Urine Microscopic RBC 0-3 (0-3) per hpf Urine Microscopic WBC 0-3 (0-3) per hpf Ur Squamous Epith Cells Many H (None-Few) per lpf Calcium Oxalate Crystal Present Urine Bacteria None Seen (None-Few) per hpf Hyaline Casts None Seen (None-Few) per lpf Ur Culture Indicated? NO (NO) - Radiology Data Radiology results reviewed: Yes I reviewed the patient's radiology results. - EKG Data EKG attestation: Yes I reviewed and interpreted this EKG. EKG results narrative: Sinus tachycardia with heart rate 100, WA 170, QTC 356. No ST segment changes Rate: Reports: tachycardia When compared to previous EKG there are: no significant changes Interpretation: Reports: no acute changes
[2019-07-19 23:31] LABS: BUN/Creatinine Ratio 14 (6-26); Blood Urea Nitrogen 10 mg/dL (6-20); Carbon Dioxide 24 mEq/L (23-29); Chloride 106 mEq/L (98-107); Glucose 81 mg/dL (70-105); Potassium 3.5 mEq/L (3.5-5.1); Sodium 138 mEq/L (136-145); eGFR For African Americans > 60 (> 60); eGFR For Non-African Americans > 60 (> 60)
[2019-07-19 23:32] LABS: Alanine Aminotransferase 15 Units/L (7-52); Albumin 3.6 g/dL (3.5-5.7); Albumin/Globulin Ratio 1.3 (1.1-2.2); Alkaline Phosphatase 93 Units/L (34-104); Aspartate Amino Transferase 16 Units/L (13-39); Bilirubin,Direct 0.1 mg/dL (0.0-0.2); Bilirubin,Indirect 0.2 mg/dL (0.0-1.2); Bilirubin,Total 0.3 mg/dL (0.3-1.0); Calcium 8.9 mg/dL (8.6-10.3); Globulin 2.7 g/dL (2.4-3.5); Magnesium 1.9 mg/dL (1.6-2.6); Osmolality,Calculated 284 (280-300); Phosphorous 3.2 mg/dL (2.7-4.5); Total Protein 6.3 g/dL (6.4-8.9); Troponin I < 0.03 ng/mL (< 0.04)
[2019-07-19] MEDS ORDERED: Ipratropium/Albuterol Neb 3 ML ONE (23:39)
[2019-07-19] MEDS: Ipratropium/Albuterol Neb 3 ML IH ONE (23:40)
[2019-07-19 23:57] LABS: Bilirubin,Urine Negative (Negative); Blood,Urine Negative (Negative); Clarity,Urine Cloudy (Clear); Color,Urine Yellow (Yellow); Glucose,Urine (UA) Normal (Normal); Ketones,Urine Negative (Negative); Leukocyte Esterase,Urine Negative (Negative); Nitrite,Urine Negative (Negative); Protein,Urine Negative (Neg-Trace); Specific Gravity,Urine 1.027 (1.010-1.025); Urobilinogen,Urine Normal (Normal)
[2019-07-19 23:59] LABS: Bacteria,Urine None Seen per hpf (None-Few); Hyaline Casts,Urine None Seen per lpf (None-Few); RBC,Urine 0-3 per hpf (0-3); Squamous Epithelial Cell,Urine Many per lpf (None-Few); WBC,Urine 0-3 per hpf (0-3)
[2019-07-20 00:12] LABS: Calcium Oxalate Crystals,Urine Present
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
--- NOTE | 2019-07-20 00:50 | Emergency Department Note ---
Disposition Clinical Impression: Pneumonia Qualifiers: Pneumonia type: due to unspecified organism Laterality: unspecified laterality Lung location: unspecified part of lung Qualified Code(s): J18.9 - Pneumonia, unspecified organism Community acquired pneumonia Qualifiers: Laterality: unspecified laterality Qualified Code(s): J18.9 - Pneumonia, unspecified organism Disposition: Admitted As Inpatient Condition: Good Time of Disposition: 00:50 General Adult HPI - General Chief complaint: ED Shortness of Breath/Dyspnea Stated complaint: cough, congestion Time Seen by Provider: 07/19/19 22:37 Source: patient Limitations: no limitations - History of Present Illness Pain Scale: 8 - Related Data Home Medications Medication Instructions Recorded Confirmed Albuterol Sulfate [Ventolin Hfa] 2 puff IH Q4-6H PRN 07/15/18 02/27/19 Buspirone HCl [Buspar] 10 mg PO DAILY 02/27/19 02/27/19 Cetirizine HCl [Zyrtec] 10 mg PO DAILY 02/27/19 02/27/19 Cholecalciferol (Vitamin D3) 1,000 unit PO DAILY 02/27/19 02/27/19 [Vitamin D] Fluticasone Propionate Nasal 50 mcg NS DAILY 02/27/19 02/27/19 [Flonase] Fluticasone/Vilanterol [Breo 1 each IH DAILY 02/27/19 02/27/19 Ellipta 100-25 Mcg INH] Gabapentin [Neurontin] 600 mg PO DAILY 02/27/19 02/27/19 Ipratropium/Albuterol Sulfate 3 ml IH Q4H PRN 02/27/19 02/27/19 [Iprat-Albut 0.5-3(2.5) mg/3 ml] Loratadine [Claritin] 10 mg PO DAILY 02/27/19 02/27/19 Montelukast [Singulair] 10 mg PO DAILY 02/27/19 02/27/19 Nicotine Patch [Nicoderm] 7 mg TD DAILY 02/27/19 02/27/19 Omeprazole [PriLOSEC] 40 mg PO DAILY 02/27/19 02/27/19 Polyethylene Glycol 3350 [MiraLAX] 17 gm PO DAILY PRN 02/27/19 02/27/19 SUMAtriptan succinate [Imitrex] 50 mg PO Q2H 02/27/19 02/27/19 Topiramate [Topamax] 50 mg PO DAILY 02/27/19 02/27/19 Tramadol HCl [Ultram] 50 mg PO TID PRN 02/27/19 02/27/19 Trazodone HCl 50 mg PO HS PRN 02/27/19 02/27/19 Venlafaxine XR (24 HR) [Effexor XR] 150 mg PO DAILY 02/27/19 02/27/19 hydrOXYzine HCl [Hydroxyzine HCl] 25 mg PO Q8H 02/27/19 02/27/19 lamoTRIgine [Lamictal] 200 mg PO HS 02/27/19 02/27/19 raNITIdine HCl [Zantac] 150 mg PO DAILY 02/27/19 02/27/19 Previous Rx's Medication Instructions Recorded Quetiapine Fumarate [Seroquel] 50 mg PO HS PRN #30 tablet 07/17/18 Allergies Allergy/AdvReac Type Severity Reaction Status Date / Time acetaminophen AdvReac CONTRAINDICATED: Verified 07/19/19 22:35 HEP C ibuprofen AdvReac Vomiting Verified 07/19/19 22:35 Constitutional: Reports: fever, chills, weakness Eyes: Denies: eye pain Cardiovascular: Denies: chest pain, palpitations Respiratory: Reports: cough, dyspnea, wheezes, sputum production. Denies: hemoptysis, stridor Gastrointestinal: Reports: nausea. Denies: abdominal pain, vomiting, diarrhea Genitourinary: Denies: urgency, dysuria Past Medical History - Past Medical History Medical history: Reports: arthritis, asthma, cancer, GERD, glaucoma, hypertension, migraine, osteoporosis, other Surgical history: Reports: other Psychiatric history: Reports: anxiety, depression - Social History Smoking Status: Current every day smoker Smokeless Tobacco Status: No Alcohol use: Reports: none Drug use: Reports: marijuana Physical Exam - General Limitations: no limitations General appearance: alert, in no apparent distress Course Vital Signs Temperature 98.4 F 07/19/19 22:31 Pulse Rate 117 07/19/19 22:31 Respiratory Rate 20 07/19/19 22:31 Blood Pressure 125/89 07/19/19 22:31 O2 Sat by Pulse Oximetry 94 07/19/19 22:31 Temperature 98.4 F 07/19/19 22:31 Pulse Rate 100 07/19/19 23:28 Respiratory Rate 18 07/19/19 23:41 Blood Pressure 119/88 07/19/19 23:28 O2 Sat by Pulse Oximetry 93 07/19/19 23:41 Oxygen Delivery Oxygen Delivery Room Air Medical Decision Making - Lab Data Result diagrams: 07/19/19 22:56 07/19/19 22:56 Lab Results 07/19/19 07/19/19 07/19/19 Range/Units 22:56 22:56 22:56 WBC 11.4 H (4.3-11.1) K/mcL RBC 4.62 (3.82-4.97) M/mcL Hgb 13.8 (11.5-15.4) g/dL Hct 41.2 (35.3-44.9) % MCV 89.2 (83.0-100.0) fL MCH 29.9 (28.0-33.3) pg MCHC 33.5 (31.6-35.5) g/dL RDW 13.2 (11.5-14.5) % Plt Count 318 (140-400) K/mcL MPV 9.3 L (9.4-12.4) fL Immature Gran % 0.5 (0-4) % Seg Neutrophils % 55.0 % Lymphocytes % 34.7 % Monocytes % 7.9 % Eosinophils % 1.1 % Basophils % 0.8 % Neutrophils # 6.3 (1.6-8.9) K/mcL Lymphocytes # 3.9 (0.6-4.6) K/mcL Monocytes # 0.9 (0.0-1.3) K/mcL Eosinophils # 0.1 (0.0-0.6) K/mcL Basophils # 0.1 (0.0-0.2) K/mcL PT 10.8 (9.4-12.1) Seconds INR 1.0 APTT 34.7 (26.0-36.0) Seconds D-Dimer 310 (0-500) ng/mLFEU Sodium 138 (136-145) mEq/L Potassium 3.5 (3.5-5.1) mEq/L Chloride 106 (98-107) mEq/L Carbon Dioxide 24 (23-29) mEq/L BUN 10 (6-20) mg/dL Creatinine 0.71 (0.60-1.20) mg/dL Est GFR ( Amer) > 60 (> 60) Est GFR (Non-Af Amer) > 60 (> 60) BUN/Creatinine Ratio 14 (6-26) Glucose 81 (70-105) mg/dL Calculated Osmolality 284 (280-300) Lactic Acid (0.5-2.2) mmol/L Calcium 8.9 (8.6-10.3) mg/dL Phosphorus 3.2 (2.7-4.5) mg/dL Magnesium 1.9 (1.6-2.6) mg/dL Total Bilirubin 0.3 (0.3-1.0) mg/dL Direct Bilirubin 0.1 (0.0-0.2) mg/dL Indirect Bilirubin 0.2 (0.0-1.2) mg/dL AST 16 (13-39) Units/L ALT 15 (7-52) Units/L Alkaline Phosphatase 93 (34-104) Units/L Troponin I < 0.03 (< 0.04) ng/mL Serum Total Protein 6.3 L (6.4-8.9) g/dL Albumin 3.6 (3.5-5.7) g/dL Globulin 2.7 (2.4-3.5) g/dL Albumin/Globulin Ratio 1.3 (1.1-2.2) Urine Color (Yellow) Urine Clarity (Clear) Urine pH (5.0-8.0) pH Units Ur Specific [place] (1.010-1.025) Urine Protein (Neg-Trace) mg/dL Urine Glucose (UA) (Normal) mg/dL Urine Ketones (Negative) mg/dL Urine Blood (Negative) Urine Nitrite (Negative) Urine Bilirubin (Negative) Urine Urobilinogen (Normal) mg/dL Ur Leukocyte Esterase (Negative) Urine Microscopic RBC (0-3) per hpf Urine Microscopic WBC (0-3) per hpf Ur Squamous Epith Cells (None-Few) per lpf Calcium Oxalate Crystal Urine Bacteria (None-Few) per hpf Hyaline Casts (None-Few) per lpf Ur Culture Indicated? (NO) 07/19/19 07/19/19 Range/Units 22:56 23:28 WBC (4.3-11.1) K/mcL RBC (3.82-4.97) M/mcL Hgb (11.5-15.4) g/dL Hct (35.3-44.9) % MCV (83.0-100.0) fL MCH (28.0-33.3) pg MCHC (31.6-35.5) g/dL RDW (11.5-14.5) % Plt Count (140-400) K/mcL MPV (9.4-12.4) fL Immature Gran % (0-4) % Seg Neutrophils % % Lymphocytes % % Monocytes % % Eosinophils % % Basophils % % Neutrophils # (1.6-8.9) K/mcL Lymphocytes # (0.6-4.6) K/mcL Monocytes # (0.0-1.3) K/mcL Eosinophils # (0.0-0.6) K/mcL Basophils # (0.0-0.2) K/mcL PT (9.4-12.1) Seconds INR APTT (26.0-36.0) Seconds D-Dimer (0-500) ng/mLFEU Sodium (136-145) mEq/L Potassium (3.5-5.1) mEq/L Chloride (98-107) mEq/L Carbon Dioxide (23-29) mEq/L BUN (6-20) mg/dL Creatinine (0.60-1.20) mg/dL Est GFR ( Amer) (> 60) Est GFR (Non-Af Amer) (> 60) BUN/Creatinine Ratio (6-26) Glucose (70-105) mg/dL Calculated Osmolality (280-300) Lactic Acid 1.0 (0.5-2.2) mmol/L Calcium (8.6-10.3) mg/dL Phosphorus (2.7-4.5) mg/dL Magnesium (1.6-2.6) mg/dL Total Bilirubin (0.3-1.0) mg/dL Direct Bilirubin (0.0-0.2) mg/dL Indirect Bilirubin (0.0-1.2) mg/dL AST (13-39) Units/L ALT (7-52) Units/L Alkaline Phosphatase (34-104) Units/L Troponin I (< 0.04) ng/mL Serum Total Protein (6.4-8.9) g/dL Albumin (3.5-5.7) g/dL Globulin (2.4-3.5) g/dL Albumin/Globulin Ratio (1.1-2.2) Urine Color Yellow (Yellow) Urine Clarity Cloudy A (Clear) Urine pH 6.0 (5.0-8.0) pH Units Ur Specific [place] 1.027 H (1.010-1.025) Urine Protein Negative (Neg-Trace) mg/dL Urine Glucose (UA) Normal (Normal) mg/dL Urine Ketones Negative (Negative) mg/dL Urine Blood Negative (Negative) Urine Nitrite Negative (Negative) Urine Bilirubin Negative (Negative) Urine Urobilinogen Normal (Normal) mg/dL Ur Leukocyte Esterase Negative (Negative) Urine Microscopic RBC 0-3 (0-3) per hpf Urine Microscopic WBC 0-3 (0-3) per hpf Ur Squamous Epith Cells Many H (None-Few) per lpf Calcium Oxalate Crystal Present Urine Bacteria None Seen (None-Few) per hpf Hyaline Casts None Seen (None-Few) per lpf Ur Culture Indicated? NO (NO) Attestation Statement - Attestation Attestation: I reviewed the residents documentation and agree with the residents assessment and plan of care. I have personally had face to face time with the patient. (Brief History, Brief Exam, and MDM) I personally supervised and was present for the bautista/critical portions of the following procedures completed by the resident: (add procedures performed here). 38 year old female presents to the eD with complaints of shortness of breath and undiagnosed COPD and she initially she tried outpatinet therapy for pnuemoina wiht levaquin and has failed. We will admit to medicine for outpatinet failure of pnuemonia and ACOPDE.
[2019-07-20] MEDS: Ipratropium/Albuterol Neb 3 ML IH ONE (00:56)
[2019-07-20] MEDS ORDERED: Acetaminophen 325 MG TABLET PO PRN (02:20)
[2019-07-20] MEDS ORDERED: Naloxone 0.4 MG/ML INJ IVP PRN (02:20)
[2019-07-20] MEDS ORDERED: Ondansetron 4 MG/2 ML VIAL IVP PRN (02:20)
[2019-07-20] MEDS: Azithromycin 500 MG in 0.9 % Sodium Chloride 250 ML IVPB SCH (03:05)
[2019-07-20] MEDS: *HR* HYDROcodone/Acet 5/325 mg TABLET PO PRN ×2 (03:05→09:32)
[2019-07-20] MEDS ORDERED: *HR* Promethazine 25 MG/ML VIAL IVP ONE (04:37)
[2019-07-20] MEDS: MethylPREDNISolone 40 MG/ML VIAL IVP SCH ×4 (04:49→23:33)
[2019-07-20] MEDS: Ipratropium/Albuterol Neb 3 ML IH SCH ×4 (04:50→22:38)
[2019-07-20 05:35] LABS: Basophils % 0.3 %; Hematocrit 41.9 % (35.3-44.9); Hemoglobin 13.7 g/dL (11.5-15.4); Immature Granulocytes % 0.7 % (0-4); Lymphocytes # 1.4 K/mcL (0.6-4.6); Lymphocytes % 14.5 %; Mean Corpuscular HGB Conc 32.7 g/dL (31.6-35.5); Mean Corpuscular Hemoglobin 30.2 pg (28.0-33.3); Mean Corpuscular Volume 92.3 fL (83.0-100.0); Mean Platelet Volume 9.6 fL (9.4-12.4); Monocytes # 0.1 K/mcL (0.0-1.3); Monocytes % 1.4 %; Neutrophils # 7.9 K/mcL (1.6-8.9); Platelet Count 333 K/mcL (140-400); Red Blood Count 4.54 M/mcL (3.82-4.97); Red Cell Distribution Width 13.3 % (11.5-14.5); Segmented Neutrophils % 83.1 %; White Blood Count 9.6 K/mcL (4.3-11.1)
[2019-07-20 05:48] LABS: INR 0.9
[2019-07-20 05:51] LABS: Activated Partial Thrombo Time 34.5 Seconds (26.0-36.0)
[2019-07-20 05:55] LABS: Alanine Aminotransferase 14 Units/L (7-52); Albumin 3.6 g/dL (3.5-5.7); Albumin/Globulin Ratio 1.4 (1.1-2.2); Alkaline Phosphatase 97 Units/L (34-104); Aspartate Amino Transferase 16 Units/L (13-39); BUN/Creatinine Ratio 12 (6-26); Bilirubin,Total 0.2 mg/dL (0.3-1.0); Blood Urea Nitrogen 9 mg/dL (6-20); Calcium 8.7 mg/dL (8.6-10.3); Carbon Dioxide 23 mEq/L (23-29); Chloride 109 mEq/L (98-107); Chol/HDL Ratio 4.8 (0-4.9); Cholesterol 177 mg/dL (< 200); Globulin 2.6 g/dL (2.4-3.5); Glucose 129 mg/dL (70-105); HDL Cholesterol 37 mg/dL (40-59); LDL Cholesterol,Calculated 118 mg/dL (0-99); Magnesium 1.9 mg/dL (1.6-2.6); Osmolality,Calculated 292 (280-300); Phosphorous 1.8 mg/dL (2.7-4.5); Sodium 141 mEq/L (136-145); Total Protein 6.2 g/dL (6.4-8.9); Triglycerides 108 mg/dL (< 150); eGFR For African Americans > 60 (> 60); eGFR For Non-African Americans > 60 (> 60)
[2019-07-20] MEDS: cefTRIAXone 1,000 MG in Water for inj. (sterile) 10 ML IVP SCH (09:25)
[2019-07-20] MEDS ORDERED: SUMAtriptan succinate 50 MG TABLET PO PRN (13:27)
[2019-07-20] MEDS ORDERED: Fluticasone Propionate Nasal 50 MCG/SPRAY BOTTLE NS PRN (13:27)
[2019-07-20] MEDS ORDERED: traZODone 50 MG TABLET PO PRN (13:27)
--- NOTE | 2019-07-20 13:33 | Internal Med Progress Note ---
Hospitalist Progress Note - Encounter Date of Encounter: 07/20/19 Time of Encounter: 12:00 - Subjective Interval History: Ms. Amaya is a 38 year old female with known PMH of chronic tobacco dependence, COPD, HTN, GERD and Bipolar who presented to ER with 2 weeks history of progressive worsening of shortness of breath that did not respond to outpatient oral antibiotics. She did complaining of productive cough of yellowish sputum as well as nausea with no vomiting. She was admitted in the hospital, started her on empirical IV antibiotic and IV steroids. Today patient stated she is feeling little better however still having moderate shortness of breath and dyspnea on exertion. She denied any chest pain. She still have cough with yellowish expectoration - Exam Vitals: Temp Pulse Resp BP Pulse Ox 97.6 F 84 18 119/84 94 07/20/19 10:55 07/20/19 10:55 07/20/19 11:18 07/20/19 10:55 07/20/19 12:47 Exam: Gen: Alert, awake, Oriented to time,place and person Chest: Diminished breath sounds B/L, Moderate to severe wheezing, No crackles, No rales Heart: S1S2+, tachycardia, No murmurs Abd: Soft, NT, BS +, No organomegaly Ext: No edema, pulses are palpable, No calf tenderness Neuro : No acute focal neuro deficits noticed Skin: No rash. - Assessment and Plan (1) COPD exacerbation Current Visit: Yes Status: Acute Assessment and Plan: Improving slowly mostly triggered by pneumonia start tapering her IV steroids continue empirical antibiotic continue frequent bronchodilator therapy (2) Community acquired pneumonia Current Visit: Yes Status: Acute Assessment and Plan: Reviewed CXR - noticed Left lower lobe infiltrate vs atelectasis due to her purulent sputum production concerning for bacterial pneumonia cont empirical abx IV Rocephin and azithromycin (3) Depression Current Visit: No Status: Acute Assessment and Plan: resumed all home meds (4) Tobacco dependence Current Visit: Yes Status: Acute Assessment and Plan: Counseled to quit smoking placed on nicotine patch - Time Spent with Patient Total time spent is greater than 50% in coordination of care (as documented) at patient's floor/unit and/or counseling patient: Internal Medicine: Result - Labs CBC & Chem 7: 07/20/19 05:00 07/20/19 05:00 Labs: Short CBC 07/19/19 07/20/19 Range/Units 22:56 05:00 WBC 11.4 H 9.6 (4.3-11.1) K/mcL Hgb 13.8 13.7 (11.5-15.4) g/dL Hct 41.2 41.9 (35.3-44.9) % Plt Count 318 333 (140-400) K/mcL Neutrophils # 6.3 7.9 (1.6-8.9) K/mcL BMP 07/19/19 07/20/19 22:56 05:00 Sodium 138 141 Potassium 3.5 4.0 Chloride 106 109 H Carbon Dioxide 24 23 BUN 10 9 Creatinine 0.71 0.74 Glucose 81 129 H Calcium 8.9 8.7 Cardiac Enzymes 07/19/19 Range/Units 22:56 Troponin I < 0.03 (< 0.04) ng/mL Liver Function 07/19/19 07/20/19 Range/Units 22:56 05:00 Total Bilirubin 0.3 0.2 L (0.3-1.0) mg/dL Direct Bilirubin 0.1 (0.0-0.2) mg/dL AST 16 16 (13-39) Units/L ALT 15 14 (7-52) Units/L Alkaline Phosphatase 93 97 (34-104) Units/L Albumin 3.6 3.6 (3.5-5.7) g/dL Urine 07/19/19 Range/Units 23:28 Urine Color Yellow (Yellow) Urine Clarity Cloudy A (Clear) Urine pH 6.0 (5.0-8.0) pH Units Ur Specific [place] 1.027 H (1.010-1.025) Urine Protein Negative (Neg-Trace) mg/dL Urine Glucose (UA) Normal (Normal) mg/dL - ABG Interpretation ABG results: PT/INR, D-dimer PT 10.0 Seconds (9.4-12.1) 07/20/19 05:00 D-Dimer 310 ng/mLFEU (0-500) 07/19/19 22:56 - Impressions Impressions Chest X-Ray 07/19/19 22:41 IMPRESSION: Low lung volume study with minimal left basilar airspace disease, atelectasis versus pneumonia. D/ / Mary Washington MD / Mary Washington MD Interpreting Provider: Mary Washington MD Consult Discharge Plan - Plan Referrals: Antoinette Miranda [Primary Care Provider] - (2) Community acquired pneumonia Qualifiers: Laterality: unspecified laterality Qualified Code(s): J18.9 - Pneumonia, unspecified organism (3) Depression Qualifiers: Depression Type: major depressive disorder Major depression recurrence: recurrent Active/Remission status: currently active Major depression episode severity: severe Psychotic features: without psychotic features Qualified Code(s): F33.2 - Major depressive disorder, recurrent severe without psychotic features
[2019-07-20] MEDS: Venlafaxine XR (24 HR) 150 MG CAP.ER.24H PO SCH (15:42)
[2019-07-20] MEDS: Famotidine 20 MG TABLET PO SCH ×2 (15:42→20:18)
[2019-07-20] MEDS: Nicotine 21 MG PATCH.TD24 TD SCH (15:42)
[2019-07-20] MEDS: Venlafaxine XR (24 HR) 37.5 MG CAP.ER.24H PO SCH (15:42)
[2019-07-20] MEDS: *HR* OxyCODONE Immed Rel 5 MG TABLET PO PRN (18:00)
[2019-07-20] MEDS: Gabapentin 300 MG CAPSULE PO SCH (20:18)
[2019-07-20] MEDS: Topiramate 25 MG TABLET PO SCH (20:18)
[2019-07-20] MEDS ORDERED: lamoTRIgine 100 MG TABLET PO SCH (21:00)
[2019-07-21] MEDS: Azithromycin 500 MG in 0.9 % Sodium Chloride 250 ML IVPB SCH (02:51)
[2019-07-21] MEDS: Ipratropium/Albuterol Neb 3 ML IH SCH ×2 (04:53→10:12)
[2019-07-21] MEDS: *HR* OxyCODONE Immed Rel 5 MG TABLET PO PRN ×2 (05:06→13:08)
[2019-07-21] MEDS: MethylPREDNISolone 40 MG/ML VIAL IVP SCH (05:07)
--- NOTE | 2019-07-21 07:34 | Electrocardiograph Report ---
[facility] Test Date: 2019-07-19 Pat Name: Claire Amaya Department: [id number] Room: [facility] Gender: F [employer]: : 1980 Requested By: Sera Bravo Order Number: [id number] Reading MD: Sushant Hewitt Measurements Intervals [place] Rate: 100 P: 60 MI: 170 QRS: 70 QRSD: 88 T: 44 QT: 356 QTc: 460 Interpretive Statements Sinus tachycardia Electronically Signed On 07-21-2019 7:07:56 EDT by Sushant Hewitt
[2019-07-21] MEDS ORDERED: Cholecalciferol (D-3) 1,000 UNIT (25MCG) TABLET PO SCH (09:00)
[2019-07-21] MEDS ORDERED: Loratadine 10 MG TABLET PO SCH (09:00)
[2019-07-21] MEDS: Venlafaxine XR (24 HR) 150 MG CAP.ER.24H PO SCH (09:25)
[2019-07-21] MEDS: Venlafaxine XR (24 HR) 37.5 MG CAP.ER.24H PO SCH (09:25)
[2019-07-21] MEDS: Gabapentin 300 MG CAPSULE PO SCH (09:26)
[2019-07-21] MEDS: Nicotine 21 MG PATCH.TD24 TD SCH (09:26)
[2019-07-21] MEDS: Famotidine 20 MG TABLET PO SCH (09:26)
[2019-07-21] MEDS: Topiramate 25 MG TABLET PO SCH (09:26)
[2019-07-21] MEDS: cefTRIAXone 1,000 MG in Water for inj. (sterile) 10 ML IVP SCH (09:27)
[2019-07-21 11:28] VITALS: BP 137/95
--- NOTE | 2019-07-21 12:00 | Discharge Summary ---
- NOTES TO OUTPATIENT PROVIDER Notes to Outpatient Provider: f/u with PCP in one week. Please quit smoking Orders not resulted at time of discharge: Pending orders 07/19/19 23:05 Culture,Blood [BC] Stat 07/20/19 04:00 Urinalysis reflex Microscopic [URIN] AM 0400 Date of Encounter: 07/21/19 Time of Encounter: 11:57 - Discharge Diagnosis (1) COPD exacerbation Priority: Primary Status: Acute (2) Community acquired pneumonia Priority: Primary Status: Acute Qualifiers: Laterality: unspecified laterality Qualified Code(s): J18.9 - Pneumonia, unspecified organism (3) Depression Priority: Secondary Status: Acute Qualifiers: Depression Type: major depressive disorder Major depression recurrence: recurrent Active/Remission status: currently active Major depression episode severity: severe Psychotic features: without psychotic features Qualified Code(s): F33.2 - Major depressive disorder, recurrent severe without psychotic features (4) Tobacco dependence Priority: Secondary Status: Acute Hospital course: Ms. Amaya is a 38 year old female with known PMH of chronic tobacco dependence, COPD, HTN, GERD and Bipolar who presented to ER with 2 weeks history of progressive worsening of shortness of breath that did not respond to outpatient oral antibiotics. She did complaining of productive cough of yellowish sputum as well as nausea with no vomiting. She was admitted in the hospital, started her on empirical IV antibiotic and IV steroids. Patient symptoms started improving slowly. She is breathing comfortably on room air today. I did residential treatment counselor her to quit smoking. Will discharge him home in a stable condition today. She does have mild sinus tachycardia and slightly elevated blood pressure so started her on metoprolol 12.5 mg PO b.i.d.. - Time Spent with Patient Total time spent providing and/or coordinating discharge services: - Discharge Medications Prescriptions: No Action Albuterol Sulfate [Ventolin Hfa] 1 puff IH Q6H PRN PRN Reason: Shortness Of Breath Fluticasone Propionate Nasal [Flonase] 2 spray NS DAILY PRN PRN Reason: Allergy Symptoms Gabapentin [Neurontin] 600 mg PO BID SUMAtriptan succinate [Imitrex] 50 mg PO DAILY PRN PRN Reason: Migraine Headache Ipratropium/Albuterol Sulfate [Iprat-Albut 0.5-3(2.5) mg/3 ml] 3 ml IH Q6H PRN PRN Reason: Shortness Of Breath Omeprazole [PriLOSEC] 40 mg PO BID Montelukast [Singulair] 10 mg PO DAILY Topiramate [Topamax] 50 mg PO BID Cholecalciferol (Vitamin D3) [Vitamin D] 1,000 unit PO DAILY raNITIdine HCl [Zantac] 150 mg PO BID Cetirizine HCl [Zyrtec] 10 mg PO DAILY Buspirone HCl [Buspar] 15 mg PO TID hydrOXYzine pamoate [Hydroxyzine Pamoate] 25 - 50 mg PO BID PRN PRN Reason: Anxiety lamoTRIgine [Lamotrigine] 200 mg PO HS Quetiapine Fumarate [Seroquel] 25 - 50 mg PO HS PRN PRN Reason: Insomnia Trazodone HCl 100 - 200 mg PO HS PRN PRN Reason: Sleep Venlafaxine HCl [Venlafaxine HCl ER] 150 mg PO QAM Venlafaxine HCl [Venlafaxine HCl ER] 37.5 mg PO QAM Home Medications: Albuterol Sulfate [Ventolin Hfa] 1 puff IH Q6H PRN 07/15/18 [History] Cetirizine HCl [Zyrtec] 10 mg PO DAILY 02/27/19 [History] Cholecalciferol (Vitamin D3) [Vitamin D] 1,000 unit PO DAILY 02/27/19 [History] Fluticasone Propionate Nasal [Flonase] 2 spray NS DAILY PRN 02/27/19 [History] Gabapentin [Neurontin] 600 mg PO BID 02/27/19 [History] Ipratropium/Albuterol Sulfate [Iprat-Albut 0.5-3(2.5) mg/3 ml] 3 ml IH Q6H PRN 02/27/19 [History] Montelukast [Singulair] 10 mg PO DAILY 02/27/19 [History] Omeprazole [PriLOSEC] 40 mg PO BID 02/27/19 [History] SUMAtriptan succinate [Imitrex] 50 mg PO DAILY PRN 02/27/19 [History] Topiramate [Topamax] 50 mg PO BID 02/27/19 [History] raNITIdine HCl [Zantac] 150 mg PO BID 02/27/19 [History] Buspirone HCl [Buspar] 15 mg PO TID 07/20/19 [History] Quetiapine Fumarate [Seroquel] 25 - 50 mg PO HS PRN 07/20/19 [History] Trazodone HCl 100 - 200 mg PO HS PRN 07/20/19 [History] Venlafaxine HCl [Venlafaxine HCl ER] 37.5 mg PO QAM 07/20/19 [History] Venlafaxine HCl [Venlafaxine HCl ER] 150 mg PO QAM 07/20/19 [History] hydrOXYzine pamoate [Hydroxyzine Pamoate] 25 - 50 mg PO BID PRN 07/20/19 [History] lamoTRIgine [Lamotrigine] 200 mg PO HS 07/20/19 [History] Azithromycin 250 mg PO DAILY #3 tablet 07/21/19 [Rx] Cephalexin [Keflex] 500 mg PO TID #9 capsule 07/21/19 [Rx] Metoprolol [Lopressor] 12.5 mg PO BID #15 tablet 07/21/19 [Rx] Nicotine Patch [Nicoderm] 21 mg TD DAILY #30 patch.td24 07/21/19 [Rx] predniSONE [PredniSONE] 40 mg PO DAILY #10 tablet 07/21/19 [Rx] Allergies/Adverse Reactions: Allergy/AdvReac Type Severity Reaction Status Date / Time acetaminophen AdvReac CONTRAINDICATED: Verified 07/20/19 10:37 HEP C ibuprofen AdvReac Vomiting Verified 07/20/19 10:37 Date of admission: 07/20/19 00:20 Primary care physician: Antoinette Miranda Consults: 07/20/19 02:24 Consult to Nurse Navigator [CONS] Routine Comment: 07/20/19 02:26 Consult to Nurse Navigator [CONS] Routine Comment: - Constitutional Vitals: Temp Pulse Resp BP Pulse Ox 98.0 F 95 16 137/95 98 07/21/19 11:27 07/21/19 11:27 07/21/19 11:27 07/21/19 11:27 07/21/19 11:27 General appearance: Present: cooperative, A&O X 3, no acute distress, answers questions appropriately Exam: Gen: Alert, awake, Oriented to time,place and person Chest: Diminished breath sounds B/L, mild wheezing, No crackles, No rales Heart: S1S2+, tachycardia, No murmurs Abd: Soft, NT, BS +, No organomegaly Ext: No edema, pulses are palpable, No calf tenderness Neuro : No acute focal neuro deficits noticed Skin: No rash. - Patient Status Disposition: Home, Self-Care Condition: Good Overall status at discharge: patient is back to baseline - Discharge Instructions Follow Up With: Antoinette Miranda [Primary Care Provider] - 07/29/19 3:30 pm - Diet and Activity Activity: increase activity as tolerated Diet: low salt diet
== END 2019-07-21 13:30 | disposition home or self-care (01) ==
LOC: 3BNU 22:28 → EMEROOARM 22:28 → SUATTDRO 07-20 00:20 → 3BNU 07-20 00:42
PROVIDERS: ADMIT Internal Medicine Nephrology; ATTEND Family Medicine